=== PATIENT | male | born 1935 | race Caucasian/White ===

== ENCOUNTER → 2017-12-13 | Outpatient (CLI) | payer OTHER | LOC: BHLMT 11:00 | PROVIDERS: ATTEND Nurse Practitioner Family | DX: R07.9 Chest pain, unspecified (principal); R06.02 Shortness of breath; S22.39XA Fracture of one rib, unspecified side, initial encounter for closed fracture; I25.10 Atherosclerotic heart disease of native coronary artery without angina pectoris; I48.0 Paroxysmal atrial fibrillation; I49.5 Sick sinus syndrome; R60.9 Edema, unspecified; Z95.0 Presence of cardiac pacemaker | CPT/HCPCS: 93005-PO ==

== ENCOUNTER → 2017-12-26 | Outpatient (CLI) | payer OTHER | LOC: BHLMT 08:30 | PROVIDERS: ATTEND Internal Medicine Interventional Cardiology | DX: R06.02 Shortness of breath (principal); I25.10 Atherosclerotic heart disease of native coronary artery without angina pectoris; R60.9 Edema, unspecified | CPT/HCPCS: 78452; 93017; 93306; A9500; J2785 ==